=== PATIENT | female | born 1995 | race Caucasian/White ===

== ENCOUNTER 2023-07-21 07:23 | Inpatient (IN) | payer OTHER ==
[2023-07-21 09:48] LABS: BASO % 0.5 % (0-2.0); EOS % 0.6 % (0-4.5); HEMOGLOBIN 12.6 GM/dL (10.7-15.3); LYMPH % 18.4 % (8-40); MCH 28.4 pg (25.7-33.7); MEAN CELL VOLUME 81.3 fl (80-96); MONO % 4.7 % (3.8-10.2); NEUT % 75.8 % (42.8-82.8); PLATELET COUNT 298 10^3/uL (134-434); RBC 4.42 M/mm3 (3.60-5.2); RDW 13.7 % (11.6-15.6); WHITE BLOOD COUNT 10.1 K/mm3 (4.0-10.0)
[2023-07-21 09:54] LABS: INR 0.9 (0.83-1.09); PROTHROMBIN TIME (PATIENT) 10.5 SEC (9.7-13.0)
[2023-07-21 09:57] LABS: ACTIVATED PTT 24.2 SECONDS (25.2-36.5)
[2023-07-21 10:11] LABS: POTASSIUM 3.7 mmol/L (3.5-5.1)
[2023-07-21 10:12] LABS: CALCIUM 9.2 mg/dL (8.5-10.1)
[2023-07-21 10:13] LABS: BLOOD UREA NITROGEN 3.9 mg/dL (7-18)
[2023-07-21 10:16] LABS: CREATININE 0.5 mg/dL (0.55-1.3)
[2023-07-21] MEDS: ELECTROLYTE-148 SOLN 1,000 ML IV SCH (10:35)
[2023-07-21] MEDS: OXYTOCIN 30 UNITS in 0.9% NS 30 UNIT/500 ML INFUS.BAG IVPB SCH (11:00)
[2023-07-21] MEDS ORDERED: OXYTOCIN 30 UNITS in 0.9% NS 30 UNIT/500 ML INFUS.BAG IVPB ONE (11:33)
[2023-07-21 12:12] LABS: HIV INTERPRETATION NEGATIVE (NEGATIVE)
[2023-07-21 13:47] VITALS: BMI 30.2
[2023-07-21] MEDS ORDERED: FENTANYL/BUPIVACAINE/NS/PF - PCEA - 50 ML DISP.SYRIN EP ONE ×2 (16:59→21:14)
[2023-07-21] MEDS ORDERED: FENTANYL CITRATE/PF 50 MCG/ML VIAL ONE (17:00)
[2023-07-21] MEDS: FENTANYL/BUPIVACAINE/NS/PF - PCEA - 50 ML DISP.SYRIN EP SCH (17:26)
[2023-07-21] MEDS ORDERED: NALOXONE HCL 0.4 MG/ML VIAL IVPUSH PRN (17:42)
[2023-07-21] MEDS ORDERED: ACETAMINOPHEN INJECTION 100 ML IVPB ONE (21:21)
[2023-07-21] MEDS ORDERED: OXYTOCIN 20 UNITS in 0.9% NS 20 UNIT/1,000 ML INFUS.BAG IV ONE (21:22)
[2023-07-21] MEDS: ACETAMINOPHEN 1000 MG/100 ML BAG IVPB ONE (21:30)
[2023-07-22] MEDS: OXYTOCIN 20 UNITS in 0.9% NS 20 UNIT/1,000 ML INFUS.BAG IV SCH (02:20)
[2023-07-22] MEDS ORDERED: IBUPROFEN 600 MG TABLET (FP) PO ONE (02:37)
[2023-07-22] MEDS: IBUPROFEN 600 MG TABLET (FP) PO PRN (03:00)
[2023-07-22] MEDS ORDERED: ACETAMINOPHEN 325 MG TABLET (FP) PO PRN (03:21)
[2023-07-22] MEDS ORDERED: oxyCODONE HCL 5 MG TABLET PO PRN (03:21)
[2023-07-22] MEDS ORDERED: METHYLERGONOVINE MALEATE 0.2 MG/1 ML AMP IM PRN (03:21)
[2023-07-22] MEDS ORDERED: BISACODYL 10 MG SUPP.RECT RC PRN (03:21)
[2023-07-22] MEDS ORDERED: BENZOCAINE 20% 57 GM BOTTLE TP PRN (03:21)
[2023-07-22] MEDS ORDERED: WITCH HAZEL 50% (TUCKS) 40 PAD/JAR PAD TP PRN (03:21)
[2023-07-22] MEDS: PRENATAL VITAMINS W/ FOLIC ACID TABLET (FP) PO SCH (10:52)
[2023-07-22] MEDS: FERROUS SO4 325 MG TABLET (FP) PO ONE (10:52)
[2023-07-23 09:33] LABS: BASO % 0.2 % (0-2.0); EOS % 0.8 % (0-4.5); HEMATOCRIT 27.2 % (32.4-45.2); HEMOGLOBIN 9.5 GM/dL (10.7-15.3); LYMPH % 18.4 % (8-40); MCH 28.4 pg (25.7-33.7); MCHC 34.7 g/dl (32.0-36.0); MEAN CELL VOLUME 81.7 fl (80-96); MEAN PLT VOLUME 7.8 fl (7.5-11.1); MONO % 4.7 % (3.8-10.2); NEUT % 75.9 % (42.8-82.8); PLATELET COUNT 245 10^3/uL (134-434); RBC 3.33 M/mm3 (3.60-5.2); RDW 13.9 % (11.6-15.6); WHITE BLOOD COUNT 15.1 K/mm3 (4.0-10.0)
[2023-07-23] MEDS: BENZOCAINE 28 GM HEMORRHOIDAL OINTMENT TP PRN (16:15)
[2023-07-23] MEDS: SENNOSIDES/DOCUSATE COMBO (SENNA PLUS) TABLET (UD) PO PRN (22:39)
[2023-07-24 11:03] VITALS: BP 107/51; PULSE 88; RESP 16; TEMP 98.3
== END 2023-07-24 13:35 | disposition home or self-care (01) | DRG 807 ==
LOC: JLDR 07:23 → J3W 07-22 04:55
PROVIDERS: ADMIT Obstetrics & Gynecology; ATTEND Obstetrics & Gynecology
PROC: 3E033VJ Introduction of Other Hormone into Peripheral Vein, Percutaneous Approach (ICD-10-PCS; 2023-07-21)
PROC: 10E0XZZ Delivery of Products of Conception, External Approach (ICD-10-PCS; principal; 2023-07-22)
PROC: 0W8NXZZ Division of Female Perineum, External Approach (ICD-10-PCS; 2023-07-22)
DX: O48.0 Post-term pregnancy (principal); Z37.0 Single live birth; O69.81X0 Labor and delivery complicated by cord around neck, without compression, not applicable or unspecified; Z3A.40 40 weeks gestation of pregnancy
CPT/HCPCS: 36415; 80048; 85025; 85610; 85730; 86780; 86850; 86900; 86901; 87389; J0131